=== PATIENT | male | born 1985 | race Caucasian/White ===

== ENCOUNTER → 2021-05-31 | Emergency (ER) | payer OTHER ==
[~2021-05-31] VITALS: Ht 180.3 cm; Wt 131.1 kg
[~2021-05-31] MED LIST: KETO10TA2 PO; LEVSIN/SL0.125 MG PO; PEPCID AC20 MG PO
== END | disposition home or self-care (01) ==
LOC: ER 15:10
DX: K63.89 Other specified diseases of intestine (principal)